=== PATIENT | male | born 1970 | race Two or more races ===

== ENCOUNTER → 2025-02-04 | Outpatient (CLI) | payer MEDICAID, SELFPAY ==
--- NOTE | 2025-02-04 14:33 | XR_ITS ---
Examination: Left knee 2 views TECHNIQUE: Standing AP lateral left knee 2 views Date and time: February 05, 2025 1454 hours INDICATIONS: Left knee pain 2 years. FINDINGS: Severe osteopenia Advanced narrowing [id number] medial joint space No fracture IMPRESSION: Severe narrowing medial joint space left knee
== END | disposition home or self-care (01) ==
LOC: CDIM 14:21
PROVIDERS: PCP Family Medicine; Referring Provider Orthopaedic Surgery; Visit Provider Orthopaedic Surgery
DX: M25.862 Other specified joint disorders, left knee (principal)
CPT/HCPCS: 73560

== ENCOUNTER 2025-03-08 10:49 | Observation (INO) | payer MEDICAID, SELFPAY ==
--- NOTE | 2025-03-07 12:09 | EKG_ITS ---
[facility] Test Date: 2025-03-07 Pat Name: MILES FARFAN Department: Room: - Gender: Male [employer]: : 1970 Requested By: Coleman Vidal Order Number: [id number] Reading MD: Coleman Vidal Measurements Intervals Gatzke Rate: 50 P: -3 NM: 184 QRS: 19 QRSD: 105 T: 49 QT: 480 QTc: 440 Interpretive Statements SINUS BRADYCARDIA Compared to ECG 09/15/2023 11:43:46 Prolonged QT interval no longer present /[id number]/[id number].pdf
[2025-03-07 12:14] VITALS: BMI 25.2
[2025-03-07 13:31] LABS: Basophils # (Auto) 0.0 Thou/mm3 (0.0-0.2); Basophils % (Auto) 1 % (0-2.5); Eosinophils # (Auto) 0.2 Thou/mm3 (0.0-0.5); Eosinophils % (Auto) 4 % (0-10); Hematocrit 42.7 % (41.0-53.0); Hemoglobin 13.5 g/dL (13.5-16.0); Immature Granulocytes Auto 0.03 Thou/mm3 (0.00-0.00); Lymphocytes # (Auto) 2.0 Thou/mm3 (1.0-4.8); Lymphocytes % (Auto) 34 % (10-50); Mean Corpuscular HGB Conc 31.6 g/dl (31.0-37.0); Mean Corpuscular Hemoglobin 28.5 pg (25.0-35.0); Mean Corpuscular Volume 90 fL (80-100); Monocytes # (Auto) 0.5 Thou/mm3 (0.0-0.8); Monocytes % (Auto) 9 % (0-12); Neutrophils # (Auto) 3.0 Thou/mm3 (1.8-7.7); Neutrophils % (Auto) 52 % (37-80); Nucleated Red Blood Cell # 0.00 Thou/mm3 (0.00-0.00); Nucleated Red Blood Cell % 0 /100 WBC (0); Platelet Count 319 Thou/mm3 (140-440); RDW Standard Deviation 44.8 fL (35.1-43.9); Red Blood Count 4.73 Miln/mm3 (4.50-5.90); White Blood Count 5.7 Thou/mm3 (3.8-10.6)
[2025-03-07 13:33] LABS: INR 0.9 (0.9-1.3); Partial Thromboplastin Time 25.8 Seconds (22.0-36.0); Prothrombin Time 10.1 Seconds (9.0-12.2)
[2025-03-07 13:34] LABS: Anion Gap 9 (7-16); BUN/Creatinine Ratio 14 Ratio (12-20); Blood Urea Nitrogen 10 mg/dL (9-23); Calcium 9.4 mg/dL (8.3-10.6); Carbon Dioxide 29.6 mMol/L (20.0-31.0); Chloride 104 mMol/L (98-107); Creatinine (Component) 0.7 mg/dL (0.6-1.3); Estimated Creatinine Clearance 117.8 mL/min (>60); Glucose 77 mg/dL (74-106); Osmolality,Calculated 282 (275-295); Potassium 4.2 mMol/L (3.4-5.1); Sodium 143 mMol/L (136-145); eGFR > 60 See Note
--- NOTE | 2025-03-07 14:41 | SUR.PREOP ---
Addendum entered by Arti Rodgers RN 03/07/25 14:43: Pt to come in at 0630 tomorrow. Original Note: Pt notified to come in at 0830 tomorrow.
[2025-03-08] VITALS (10 sets, daily range): BP systolic 122–158; BP diastolic 77–98; PULSE 58–84; RESP 12–20; TEMP 36.1–36.6; O2SAT 95–100; BMI 25.2; BMI 29.7
[2025-03-08] MEDS: RINGERS LACTATED 1000 ML 1,000 ML 20 ML IV (07:25)
--- NOTE | 2025-03-08 07:42 | SUR.PREOP ---
Patient expressed gratitude for prayer before their procedure.
--- NOTE | 2025-03-08 10:53 | XR_ITS ---
Examination: Knee, left, 3 views Technique: Knee AP, lateral, oblique 3 views Date and time of exam: March 08, 2025, 1117 hours INDICATIONS: Postop knee replacement FINDINGS: Total left knee arthroplasty. Satisfactory alignment. No fracture IMPRESSION: Total left knee arthroplasty with satisfactory alignment
--- NOTE | 2025-03-08 10:54 | PD.SUROPNT ---
Date of Procedure 03/08/25 Pre Op Diagnosis Severe DJD left knee joint Post Op Diagnosis Same Procedure Left total knee replacement R persona implant. Femur size 8 standard Tibial baseplate size F Polyethylene size 10 mm MC Patella size 29 mm Findings Patient has severe DJD of the medial compartment. Almost all of the medial femoral condyle was denuded of cartilage. 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 The patella shows a significant osteoarthritic changes. 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 Osteophytes were present in both tibia, femur and patella Procedure Description The patient was given a general anesthesia. Once satisfactory anesthesia was achieved a tourniquet was placed on left upper thigh. Left femoral nerve block was also given. Intravenous antibiotics was given at the time of anesthesia. The patient was thoroughly prepped and draped. After using Esmarch the tourniquet pressure was raised to 350 mmHg. A skin incision was made 2 inches proximal to the upper pole of patella going as far down as up to the medial aspect of the tibial tuberosity. The skin was raised as a flap on the site. The bleeding vessels were electrocoagulated as and when encountered. The quadriceps tendon, medial border of the patella and the patellar tendon along the medial aspect of the tibial tuberosity was incised and reflected. The patellar tendon was reflected as much as needed to checo the patella. The soft tissue from the upper medial border of the tibia was reflected to correct her genu varum deformity. The knee joint was flexed. The anterior cruciate ligament, medial and lateral meniscus were excised. Next para drill hole was made to the inferior surface of the femur. Following that a swab was placed. A 4?? of abduction was already put into it. Following that a cutting block for the inferior cut of the femur was placed and nicely secured with the pins. The swat was removed. The inferior cut of the femur was made and after that the cutting block was removed. Following that a sizer was placed. A decision was made to use size [8] femur implant. 2 drill holes each in 3?? of external rotation were made. The sizer was removed. Size [8] cutting block was placed. Following that anterior, posterior, anterior chamfer and posterior chamfer cuts were made. The cutting block was removed. The knee joint was extended and a 10 mm trial plastic was removed and the intended level of the tibial cut was marked. The knee joint was flexed. With the help of double-pronged the tibia was displaced anteriorly. An extramedullary jig for the cutting block placement of the tibia was placed. The mechanical axis of the zig was parallel to the mechanical axis of the tibia. Following that the tibial cutting block was placed at the desired level and was secured nicely with the help of pins. Following that the tibial cut was made. In this case was posterior cruciate ligament was saved. The cutting block was removed. The spacer was placed and a decision was made to use size [10] polyethylene. The sizing of the tibial baseplate was done and the decision was made to use size [F] tibial baseplate. Following that size [8] trial femur implant was placed in lateralized position and size [F] tibial tibial baseplate along with size [10] MC plastic was placed in knee joint was flexed and extended quite a few times and tibial baseplate was allowed to sit wherever it wanted to. The markings were made for the tibial baseplate. 2 drill holes were made for the inferior surface of the femur trial implant. The trial implant was removed and tibial baseplate was placed again with the help of pins. The collar was placed and superior hole was drilled. Following that a fin cut was made. The patella was reamed with [29] mm diameter reamer. [12] mm thickness was left. A collar was placed and 3 drill holes were made. All the trial implant was placed and patellar tracking was checked and found to be good. Lateral release was done at this point. The wound was irrigated with antibiotic solution every 4-5 minutes. Now the power lavage antibiotic solution was used. The knee joint was flexed. The bone were made dry. The cement was mixed. With the help of cement the tibial baseplate was mounted. The excess cement was removed. The femur implant was placed and trial plastic was placed and knee joint was extended. Patella was also mounted with the help of cementing. Excess cement was removed. Osteophytes from the patella was removed at this time. Once the cement was set the tourniquet pressure was released. The bleeding vessels were electrocoagulated. The trial plastic was removed and 10 mm MC ultra high molecular weight polyethylene was placed. Closure The quadriceps tendon, medial border patella and patellar tendon was closed with 1 strata fix in continuous fashion. The fat layer was closed with the help of 2 a strata fix in continuous fashion. The skin was closed with the help of Monocryl. Prineo tape was applied. The wound was cleaned with hydrogen proximal solution and a sterile dressing was applied. Patient tolerated procedure very well. Estimated blood loss [50] mL. Prognosis in this case is good. This was taken to the recovery room in good condition. Anesthesia GETA and other Pathology / specimen None Estimated Blood Loss 50 Surgeon Coleman Calhoun MD Surgical Staff Operation Date: 03/08/25 08:30 Case Staff Anesthesiologist: Oziel Connell RN First Assistant: Anum Bennett
--- NOTE | 2025-03-08 11:07 | SUR.PHASEI ---
pt received from OR in recovery bay 1. pt obtunded, breathing unlabored on oxymask 8l, oral airway in place. v/s stable. pt dressing to left lower extremity cdi. report received from Albert IRVIN and Dr. Connell.
[2025-03-08] MEDS: HYDROmorphone INJ 2 MG/ML VIAL 0.4 MG IVP (11:23)
[2025-03-08] MEDS: fentaNYL CIT INJ 50 mCg/ML AMP 2ML 25 MCG IVP (11:58)
--- NOTE | 2025-03-08 12:05 | SUR.PHASEII ---
pt awake and alert, breathing unlabored on room air. v/s stable. pt dressing to left lower extremity cdi. report called to Lanette IRVIN. pt will be transferred to room at this time.
[2025-03-08] MEDS: ceFAZolin/D5W 1 GM IVPB 1 GM/50 ML BAG IV ×2 (14:45→22:00)
[2025-03-08] MEDS: MORPHINE SULF INJ 4 MG/ML VIAL IVP (15:07)
[2025-03-08] MEDS: ATORVASTATIN CALCIUM 10 MG TABLET PO (20:46)
[2025-03-09] VITALS: BP 145/77; PULSE 70; RESP 16; TEMP 36.7; O2SAT 96
[2025-03-09] MEDS: MORPHINE SULF INJ 4 MG/ML VIAL IVP ×4 (01:01→16:49)
[2025-03-09 04:00] VITALS: BP 141/76; PULSE 69; RESP 16; TEMP 36.8; O2SAT 95
[2025-03-09 06:03] LABS: Basophils # (Auto) 0.0 Thou/mm3 (0.0-0.2); Basophils % (Auto) 0 % (0-2.5); Eosinophils # (Auto) 0.0 Thou/mm3 (0.0-0.5); Eosinophils % (Auto) 0 % (0-10); Hematocrit 36.1 % (41.0-53.0); Hemoglobin 12.1 g/dL (13.5-16.0); Immature Granulocytes Auto 0.10 Thou/mm3 (0.00-0.00); Lymphocytes # (Auto) 1.8 Thou/mm3 (1.0-4.8); Lymphocytes % (Auto) 9 % (10-50); Mean Corpuscular HGB Conc 33.5 g/dl (31.0-37.0); Mean Corpuscular Hemoglobin 29.4 pg (25.0-35.0); Mean Corpuscular Volume 88 fL (80-100); Monocytes # (Auto) 1.5 Thou/mm3 (0.0-0.8); Monocytes % (Auto) 8 % (0-12); Neutrophils # (Auto) 16.0 Thou/mm3 (1.8-7.7); Neutrophils % (Auto) 83 % (37-80); Nucleated Red Blood Cell # 0.00 Thou/mm3 (0.00-0.00); Nucleated Red Blood Cell % 0 /100 WBC (0); Platelet Count 296 Thou/mm3 (140-440); RDW Standard Deviation 42.6 fL (35.1-43.9); Red Blood Count 4.12 Miln/mm3 (4.50-5.90); White Blood Count 19.4 Thou/mm3 (3.8-10.6)
[2025-03-09 08:00] VITALS: BP 136/82; PULSE 72; RESP 15; TEMP 36.6; O2SAT 97
--- NOTE | 2025-03-09 10:15 | PC.NURSE ---
pt seen by pysical therapy. patient did well walked outside of the room with the assistance of a walker. pt tolerated well.
--- NOTE | 2025-03-09 11:03 | PC.SS ---
Patient is a 54 year old male patient presenting to the hospital for LT total knee. SURGICAL NURSE PRACTITIONER met with patient and patient at bedside. SURGICAL NURSE PRACTITIONER explained role and reason for visit. Patient gave consent for guest to remain in the room. Patient confirmed demographic information and stated he lives with his Lary, patient stated that in case he is unable to make medical decisions on his own he would like Lary to make them. Patient stated that he does not use DME, his PCP is Dr. Alvares at [facility] his last appointment was on December 2024, pharmacy of choice is [facility]. Patient stated that once medically clear he would like to return home and his family will provide transportation. PCP: RENNY Alvares Alternate medical decision maker: Lary Bender [phone] D/c: home
--- NOTE | 2025-03-09 11:41 | PC.PT ---
03/09/2025 PT eval performed, very limited ROM so additional PT recommended, Pt amb w/ FWW and will need a FWW for home use if he doesn't have one available.
[2025-03-09 12:00] VITALS: BP 135/72; PULSE 77; RESP 15; TEMP 36.6; O2SAT 97
--- NOTE | 2025-03-09 14:30 | PC.NURSE ---
Contacted Dr Lee in regards to pts plan for DC also made aware of mornings labs including wbc of 19.4 per md hold and ordered cbc stat prior to dc and notify.
[2025-03-09 16:00] VITALS: BP 148/88; PULSE 75; RESP 15; TEMP 36.8; O2SAT 96
[2025-03-09 16:09] LABS: Basophils # (Auto) 0.0 Thou/mm3 (0.0-0.2); Basophils % (Auto) 0 % (0-2.5); Eosinophils # (Auto) 0.0 Thou/mm3 (0.0-0.5); Eosinophils % (Auto) 0 % (0-10); Hematocrit 36.6 % (41.0-53.0); Hemoglobin 12.1 g/dL (13.5-16.0); Immature Granulocytes Auto 0.10 Thou/mm3 (0.00-0.00); Lymphocytes # (Auto) 1.4 Thou/mm3 (1.0-4.8); Lymphocytes % (Auto) 10 % (10-50); Mean Corpuscular HGB Conc 33.1 g/dl (31.0-37.0); Mean Corpuscular Hemoglobin 28.9 pg (25.0-35.0); Mean Corpuscular Volume 87 fL (80-100); Monocytes # (Auto) 1.3 Thou/mm3 (0.0-0.8); Monocytes % (Auto) 9 % (0-12); Neutrophils # (Auto) 11.3 Thou/mm3 (1.8-7.7); Neutrophils % (Auto) 80 % (37-80); Nucleated Red Blood Cell # 0.00 Thou/mm3 (0.00-0.00); Nucleated Red Blood Cell % 0 /100 WBC (0); Platelet Count 260 Thou/mm3 (140-440); RDW Standard Deviation 43.4 fL (35.1-43.9); Red Blood Count 4.19 Miln/mm3 (4.50-5.90); White Blood Count 14.1 Thou/mm3 (3.8-10.6)
--- NOTE | 2025-03-09 16:36 | PC.NURSE ---
Made Dr Lee aware of pts current labs, vs per md continue with discharge. Per pt has an appointment and pain medications, walker at home and no need to come see pt at this time prior to dc.
[2025-03-09 17:45] VITALS: BP 132/84; O2SAT 97
== END 2025-03-09 17:52 | disposition home or self-care (01) ==
LOC: S3NX 12:49
PROVIDERS: Admitting Provider Orthopaedic Surgery; PCP Family Medicine; Referring Provider Orthopaedic Surgery; Visit Provider Orthopaedic Surgery
PROC: (CPT 27447; principal; 2025-03-08 08:30)
DX: M17.12 Unilateral primary osteoarthritis, left knee (principal); M21.162 Varus deformity, not elsewhere classified, left knee; M25.762 Osteophyte, left knee; M94.262 Chondromalacia, left knee; Z01.810 Encounter for preprocedural cardiovascular examination
CPT/HCPCS: 27447; 36415; 73562; 80048; 85025; 85610; 85730; 86850; 86900; 86901; 86923; 87081; 93005; 96374; 96375; 97162; A4217; A4649; C1713; C1776; G0378; J0131; J0689; J0690; J1100; J1171; J1580; J1885; J2250; J2270; J2405; J2704; J2795; J3010; J7120; A9270